=== PATIENT | female | born 1955 | race Caucasian/White ===

== ENCOUNTER 2023-02-21 07:28 | Day surgery (SDC) | payer MEDICARE ==
[2023-02-21] MEDS ORDERED: LIDOCAINE HCL 2% 100 MG/5 ML IJ ONE (07:29)
[2023-02-21] MEDS ORDERED: Xylocaine-Mpf 2% 5 Ml Vial ONE (08:45)
[2023-02-21] MEDS ORDERED: DIPRIVAN 200 MG/20 ML IV ONE (09:10)
--- NOTE | 2023-02-21 10:06 | XRAY ---
Indication: Bilateral L4-S1 MBB. Intraoperative fluoroscopy provided for 17 seconds. Single digital spot image submitted for interpretation demonstrates posterior needle tips projecting over the expected left and right L4-S1 nerve roots. Correlate with intraoperative findings/report.
[2023-02-21] MEDS ORDERED: Lactated Ringers 1,000 ML IV ONE (10:43)
--- NOTE | 2023-02-21 12:27 | XRAY ---
17 seconds of fluoroscopy was used in surgery for a bilateralL4-S1 MBB.
== END 2023-02-21 09:10 | disposition home or self-care (01) ==
LOC: SDC-PAIN 07:28
PROVIDERS: ATTEND Psychiatry & Neurology Pain Medicine
DX: M47.816 Spondylosis without myelopathy or radiculopathy, lumbar region (principal); Z79.899 Other long term (current) drug therapy
CPT/HCPCS: 64493; 64494; 72020; 77002; J2704

== ENCOUNTER 2023-04-25 11:42 | Day surgery (SDC) | payer MEDICARE ==
[2023-04-25] MEDS ORDERED: BUPIVACAINE 0.5% VIAL IJ ONE (11:43)
[2023-04-25] MEDS ORDERED: Depo-Medrol 40 MG/ML IM ONE (11:43)
[2023-04-25] MEDS ORDERED: DIPRIVAN 200 MG/20 ML IV ONE (12:38)
[2023-04-25] MEDS ORDERED: Lactated Ringers 1,000 ML IV ONE (14:11)
--- NOTE | 2023-04-25 14:39 | XRAY ---
Indication: Bilateral L4-S1 MBB. Intraoperative fluoroscopy provided for 19 seconds. Single digital spot image submitted for interpretation demonstrates posterior needle tips projecting over the expected left and right L4-S1 nerve roots. Correlate with intraoperative findings/report.
--- NOTE | 2023-04-25 14:51 | XRAY ---
19 seconds of fluoroscopy was used in surgery for a bilateral L4-S1 MBB.
== END 2023-04-25 13:07 | disposition home or self-care (01) ==
LOC: SDC-PAIN 11:42
PROVIDERS: ATTEND Psychiatry & Neurology Pain Medicine
DX: M47.816 Spondylosis without myelopathy or radiculopathy, lumbar region (principal)
CPT/HCPCS: 64493; 64494; 72020; 77002; J1030; J2704

== ENCOUNTER 2023-05-30 12:10 | Day surgery (SDC) | payer MEDICARE ==
[2023-05-30] MEDS ORDERED: Depo-Medrol 40 MG/ML IM ONE (12:11)
[2023-05-30] MEDS ORDERED: BUPIVACAINE 0.5% VIAL IJ ONE (12:11)
[2023-05-30] MEDS ORDERED: XYLOCAINE-MPF 1% 5ML SDV IJ ONE (12:11)
[2023-05-30] MEDS ORDERED: DIPRIVAN 200 MG/20 ML IV ONE (14:51)
[2023-05-30] MEDS ORDERED: Lactated Ringers 1,000 ML IV ONE (15:03)
--- NOTE | 2023-05-30 16:58 | XRAY ---
Indication: Right L4-S1 RFA. Intraoperative fluoroscopy provided for 20 seconds. 3digital spot image submitted for interpretation demonstrates posterior needle tips projecting over the expected right L4-S1 nerve roots. Correlate with intraoperative findings/report. Incidental incompletely visualized right SI joint fusion hardware.
--- NOTE | 2023-05-30 17:00 | XRAY ---
20 seconds of fluoroscopy was used in surgery for a right L4-S1 RFA.
== END 2023-05-30 15:18 | disposition home or self-care (01) ==
LOC: SDC-PAIN 12:10
PROVIDERS: ATTEND Psychiatry & Neurology Pain Medicine
DX: M47.816 Spondylosis without myelopathy or radiculopathy, lumbar region (principal); Z79.899 Other long term (current) drug therapy
CPT/HCPCS: 64635; 64636; 72100; 77002; J1030; J2704

== ENCOUNTER 2023-06-06 13:04 | Day surgery (SDC) | payer MEDICARE ==
[2023-06-06] MEDS ORDERED: XYLOCAINE-MPF 1% 5ML SDV IJ ONE (13:05)
[2023-06-06] MEDS ORDERED: BUPIVACAINE 0.5% VIAL IJ ONE (13:05)
[2023-06-06] MEDS ORDERED: Depo-Medrol 40 MG/ML IM ONE (13:05)
[2023-06-06] MEDS ORDERED: DIPRIVAN 200 MG/20 ML IV ONE (15:16)
[2023-06-06] MEDS ORDERED: Lactated Ringers 1,000 ML IV ONE (15:37)
--- NOTE | 2023-06-06 16:35 | XRAY ---
Indication: Left L4-S1 RFA. Intraoperative fluoroscopy provided for 18 seconds. 5 digital spot images submitted for interpretation demonstrates posterior needle tips projecting over the expected left L4-S1 nerve roots. Correlate with intraoperative findings/report. Incidental incompletely visualized right SI joint fusion hardware.
--- NOTE | 2023-06-06 16:48 | XRAY ---
18 seconds of fluoroscopy was used in surgery for a left L4-S1 RFA.
== END 2023-06-06 15:50 | disposition home or self-care (01) ==
LOC: SDC-PAIN 13:04
PROVIDERS: ATTEND Psychiatry & Neurology Pain Medicine
DX: M47.817 Spondylosis without myelopathy or radiculopathy, lumbosacral region (principal)
CPT/HCPCS: 64635; 64636; 72100; 77002; J1030; J2704

== ENCOUNTER 2023-10-04 13:49 | Day surgery (SDC) | payer MEDICARE ==
[2023-10-04] MEDS ORDERED: Depo-Medrol 40 MG/ML IM ONE (13:50)
[2023-10-04] MEDS ORDERED: BUPIVACAINE 0.5% VIAL IJ ONE (13:50)
[2023-10-04] MEDS ORDERED: Lactated Ringers 1,000 ML IV ONE (15:24)
[2023-10-04] MEDS ORDERED: DIPRIVAN 200 MG/20 ML IV ONE (15:27)
--- NOTE | 2023-10-04 16:33 | XRAY ---
Indication: Right SI joint and right greater trochanter bursa injection. Intraoperative fluoroscopy provided for 1 minute 10 seconds. 4 digital spot image submitted for interpretation demonstrates posterior needle tip projecting over right SI joint. Second needle tip lateral to right greater trochanter. Small amount of contrast injected for all needle tip placement. Correlate with intraoperative findings/report. Incidental right SI joint fusion hardware
--- NOTE | 2023-10-04 16:43 | XRAY ---
1 minute 10 seconds of fluoroscopy was used in surgery for a right hip intra-articular injection and greater trochanteric bursa injections and a right SI injection.
== END 2023-10-04 16:07 | disposition home or self-care (01) ==
LOC: SDC-PAIN 13:49
PROVIDERS: ATTEND Psychiatry & Neurology Pain Medicine
DX: M46.1 Sacroiliitis, not elsewhere classified (principal)
CPT/HCPCS: 01992; 20610; 27096; 73502; 77002; G0260; J1010; J2704; Q9966; J1030

== ENCOUNTER 2024-01-16 10:44 | Day surgery (SDC) | payer MEDICARE ==
[2024-01-16] MEDS ORDERED: BUPIVACAINE 0.5% VIAL IJ ONE (10:45)
[2024-01-16] MEDS ORDERED: DIPRIVAN 200 MG/20 ML IV ONE (12:09)
[2024-01-16] MEDS ORDERED: Lactated Ringers 1,000 ML IV ONE (12:43)
--- NOTE | 2024-01-16 13:27 | XRAY ---
Indication: Bilateral L1-L3 MBB. Intraoperative fluoroscopy provided for 12 seconds. 2 digital spot image submitted for interpretation demonstrates posterior needle tips projecting over the expected left and right L1-L3 nerve roots. Correlate with intraoperative findings/report. Incidental incompletely visualized epidural leads.
--- NOTE | 2024-01-16 13:29 | XRAY ---
12 seconds of fluoroscopy was used in surgery for a bilateral L1-L3 MBB.
== END 2024-01-16 12:40 ==
LOC: SDC-PAIN 10:44
PROVIDERS: ATTEND Psychiatry & Neurology Pain Medicine
DX: M47.816 Spondylosis without myelopathy or radiculopathy, lumbar region (principal)
CPT/HCPCS: 64493; 64494; 72020; 77002; J2704